=== PATIENT | male | born 1975 | race Caucasian/White ===

== ENCOUNTER 2017-12-19 07:09 | Emergency (ER) | payer BC, SELFPAY ==
[2017-12-19 07:14] VITALS: BP 166/110; PULSE 83; RESP 16; TEMP 36.6; O2SAT 96; BMI 38.0
--- NOTE | 2017-12-19 07:22 | ED.MALEGU ---
HPI - Male Genitourinary General Chief complaint: Urogenital-Male Stated complaint: passing a kidney stone Time Seen by Provider: 12/19/17 07:13 Source: patient Mode of arrival: ambulatory Limitations: no limitations History of Present Illness HPI Narrative: Patient states that he woke up around 4 or 5 o'clock this morning with a dull pain in his left flank. He states that on the way to work the pain became increasingly severe to the point that the patient had to come to the emergency department instead. He states he had severe nausea on the way here but that when he got here the pain and nausea suddenly resolved, and now he is feeling fine. Patient states he has had 1 kidney stone in the past, about 3 years ago. He also states his father had kidney stones. MD Complaint: other (Flank pain) Onset (ago): hour(s) Duration: now resolved Location: left flank Severity: severe (At time of maximal symptoms) Severity scale (1-10): 10 (Maximal pain; now 0) Quality: sharp Relieving factors: none Exacerbating factors: none other (See above) Reports nausea/vomiting (Nausea only) Related Data Home Medications Medication Instructions Recorded Confirmed acetaminophen [Acetaminophen Extra 500 mg PO Q6H PRN 12/19/17 12/19/17 Strength] amlodipine 5 mg PO DAILY 12/19/17 12/19/17 Allergies Allergy/AdvReac Type Severity Reaction Status Date / Time No Known Allergies Allergy Uncoded 12/19/17 07:14 Review of Systems Review of Systems All systems reviewed & are unremarkable except as noted in HPI and below Constitutional Denies chills, Denies fever(s), Denies lethargy and Denies weakness Eyes Denies change in vision, Denies eye discharge, Denies irritation and Denies loss of vision ENT Ears, Nose, Mouth, and Throat: Denies change in voice, Denies neck pain and Denies sore throat Cardiovascular Denies chest pain, Denies irregular heart rhythm, Denies lightheadedness, Denies palpitations, Denies dyspnea, Denies dyspnea on exertion and Denies orthopnea Respiratory Denies cough, Denies dyspnea, Denies dyspnea on exertion and Denies wheezing Gastrointestinal Gastrointestinal: Denies abdominal pain, Denies change in bowel habits, Denies diarrhea, Reports nausea and Denies vomiting Genitourinary Denies hematuria, Reports flank pain, Denies urinary incontinence and Denies urinary urgency Musculoskeletal Denies neck pain Integumentary/Breasts Denies pruritus, Denies erythema, Denies rash and Denies wounds Neurologic Denies confusion, Denies loss of vision and Denies weakness Psychiatric Denies anxiety, Denies confusion, Denies depression, Denies homicidal ideation and Denies suicidal ideation Endocrine Denies palpitations Hematologic/Lymphatic Denies easy bruising Allergic/Immunologic Denies wheezing PFSH Social History Smoking Status: Never smoker Exam Initial Vital Signs Initial Vital Signs: Vital Signs Temperature 97.8 F 12/19/17 07:14 Pulse Rate 83 12/19/17 07:14 Respiratory Rate 16 12/19/17 07:14 Blood Pressure 166/110 H 12/19/17 07:14 Pulse Oximetry 96 12/19/17 07:14 Const General: cooperative and well developed Nutritional Appearance: well nourished Orientation: alert, awake, oriented x3 and not confused HENMT Head: normocephalic and atraumatic Ears: external ears normal and TM's normal bilaterally Nose: external nose normal and No nasal discharge Face and sinus: sinuses nontender, face symmetric, no sinus tenderness and No dry mucous membranes Mouth: oral mucosae normal and moist mucous membranes Teeth and gingiva: dentition normal Throat: tonsils normal and uvula midline Eyes General: appearance normal, both eyes and all related structures Eyelids: eyelids normal Conjunctivae: conjunctivae normal Sclera: sclerae normal Pupils: PERRL EOM: EOM intact bilaterally Neck Neck: normal visual inspection, trachea midline, No lymphadenopathy, No midline deformity and No JVD Lymphatic: No lymphedema Chest Chest: normal inspection of the chest Resp Effort & Inspection: normal respiratory effort, able to speak in complete sentences, no respiratory distress and no use of accessory muscles Auscultation: clear to auscultation bilaterally, no rales, no rhonchi and no wheezes Cardio Rate: regular rate Rhythm: regular rhythm Heart Sounds: no click, no gallops, no murmurs and no rubs Pulses: normal peripheral pulses GI Inspection: non-distended Palpation: soft, no hepatosplenomegaly, No guarding, No pulsatile mass and No tender Auscultation: normal bowel sounds Back/Spine/Pelvis Back: No CVA tenderness Cervical Spine: cervical ROM normal and No pain with cervical ROM Thoracic/Lumbar Spine: thoracic and lumbar spine normal to inspection Skin General: no rashes or lesions noted, No jaundice and No petechiae Neuro General: alert, oriented x3, gait normal and no focal motor deficits Speech: speech normal Extrem General: full ROM, no clubbing, cyanosis or edema, no pedal edema and no calf tenderness Psych Appearance: well kempt Mental Status: mental status grossly normal Attitude: cooperative Thought Content: normal and suicidality Judgment: judgment good Course Hospital Course: Patient was completely asymptomatic at the time of my evaluation. Orders Ordered: ED Orders 12/19/17 07:35 CT kidney ureter bladder (KUB) Stat Vital Signs - 8 hr 12/19/17 07:14 Temperature 97.8 F Pulse Rate 83 Respiratory Rate 16 Blood Pressure 166/110 H Pulse Oximetry 96 MDM - Male Genitourinary Differential Diagnosis Likely urinary tract infection and other (Urinary calculi) Medical Records Attestation: I reviewed the patient's medical records. Lab Data Attestation: I reviewed the patient's lab results. Urine dip showed positive blood and ketones. No evidence of infection. Imaging Data CT scan - abdomen: Radiologist's impression: PROCEDURE: CT KIDNEY URETER BLADDER (KUB) INDICATIONS: flank pain, hematuria, left TECHNIQUE: Noncontrast 5 mm thick sections acquired from the diaphragms to the symphysis. 5 mm thick coronal and sagittal reformats were then performed. For radiation dose reduction, the following was used: automated exposure control, adjustment of mA and/or kV according to patient size. COMPARISON: None. FINDINGS: Image quality: Excellent. Lung bases: Lung bases are clear. Heart size is normal. Urinary system: Both kidneys are normal in size. A 2 mm nonobstructing stone is present in the upper pole collecting system of the left kidney. A 1 mm calculus is present in the left lower pole collecting system laterally and a 2 mm stone in the inferior pole. The right kidney contains a 2 mm calcification at the cortical medullary junction anteriorly at the interpolar level. The right renal collecting system and ureter appear normal. There is mild dilatation of the left collecting system and ureter with no filling defects. Bladder wall thickness is normal. A 4 mm calculus is present in the posterior urinary bladder, attenuation 357 compatible with uric acid stone. Other solid organs: Liver is normal in size. Gallbladder appears normal. Pancreas is normal in contours. Spleen is prominent measuring 13.6 cm craniocaudal, 13.5 CM AP and 6.5 CM transverse. Small splenules. No adrenal nodules. Peritoneum and bowel: Unenhanced bowel loops demonstrate normal wall thickness and caliber. Normal appendix. No free fluid or air. Nodes and vessels: No retroperitoneal or mesenteric adenopathy by size criteria. Aorta and inferior vena cava are normal in caliber. Abdominal wall: No ventral hernias. Pelvis: No free pelvic fluid. Small bilateral fat filled inguinal hernias, no adenopathy. The prostate measures 3.9 x 4.7 cm. Bones: No suspicious bony lesions. No vertebral body compression fractures. IMPRESSION: 1. A 4 mm stone is present in the dependent urinary bladder and there is mild left hydroureteronephrosis, all compatible with recently passed stone. 2. Bilateral nephrolithiasis, left greater than right. 3. Mild enlargement of the prostate. 4. Mild splenomegaly. Dictated by: Elver Contreras M.D. on 12/19/2017 at 8:22 Approved by: Elver Contreras M.D. on 12/19/2017 at 8:33 MDM Narrative Medical decision making narrative: Patient was found to have a stone that had passed into his bladder. Several stones were noted to be in his bilateral kidneys, but no further ureteral calculi were noted. Patient continued to be asymptomatic in the emergency department and I felt he was stable for discharge home. Discharge Plan Departure Prescriptions: No Action amlodipine 5 mg Tablet 5 mg PO DAILY RF: 0 acetaminophen [Acetaminophen Extra Strength] 500 mg Tablet 500 mg PO Q6H PRN (Reason: Pain, Moderate) RF: 0
--- NOTE | 2017-12-19 07:24 | PC.NURSE ---
Per MD, No urine culture needed
--- NOTE | 2017-12-19 07:35 | DI.CT.S_ITS ---
PROCEDURE: CT KIDNEY URETER BLADDER (KUB) INDICATIONS: flank pain, hematuria, left TECHNIQUE: Noncontrast 5 mm thick sections acquired from the diaphragms to the symphysis. 5 mm thick coronal and sagittal reformats were then performed. For radiation dose reduction, the following was used: automated exposure control, adjustment of mA and/or kV according to patient size. COMPARISON: None. FINDINGS: Image quality: Excellent. Lung bases: Lung bases are clear. Heart size is normal. Urinary system: Both kidneys are normal in size. A 2 mm nonobstructing stone is present in the upper pole collecting system of the left kidney. A 1 mm calculus is present in the left lower pole collecting system laterally and a 2 mm stone in the inferior pole. The right kidney contains a 2 mm calcification at the cortical medullary junction anteriorly at the interpolar level. The right renal collecting system and ureter appear normal. There is mild dilatation of the left collecting system and ureter with no filling defects. Bladder wall thickness is normal. A 4 mm calculus is present in the posterior urinary bladder, attenuation 357 compatible with uric acid stone. Other solid organs: Liver is normal in size. Gallbladder appears normal. Pancreas is normal in contours. Spleen is prominent measuring 13.6 cm craniocaudal, 13.5 CM AP and 6.5 CM transverse. Small splenules. No adrenal nodules. Peritoneum and bowel: Unenhanced bowel loops demonstrate normal wall thickness and caliber. Normal appendix. No free fluid or air. Nodes and vessels: No retroperitoneal or mesenteric adenopathy by size criteria. Aorta and inferior vena cava are normal in caliber. Abdominal wall: No ventral hernias. Pelvis: No free pelvic fluid. Small bilateral fat filled inguinal hernias, no adenopathy. The prostate measures 3.9 x 4.7 cm. Bones: No suspicious bony lesions. No vertebral body compression fractures. IMPRESSION: 1. A 4 mm stone is present in the dependent urinary bladder and there is mild left hydroureteronephrosis, all compatible with recently passed stone. 2. Bilateral nephrolithiasis, left greater than right. 3. Mild enlargement of the prostate. 4. Mild splenomegaly. Dictated by: Elver Contreras M.D. on 12/19/2017 at 8:22 Approved by: Elver Contreras M.D. on 12/19/2017 at 8:33
[2017-12-19 08:44] VITALS: BP 139/96; PULSE 68; RESP 18; O2SAT 96
== END 2017-12-19 08:48 | disposition home or self-care (01) ==
PROVIDERS: Emergency Provider Emergency Medicine
DX: N20.0 Calculus of kidney (principal)
CPT/HCPCS: 74176; 81003; 99282; 99284